=== PATIENT | male | born 1995 | race Caucasian/White ===

== ENCOUNTER 2018-12-13 13:52 | Outpatient (CLI) | payer OTHER ==
[2018-12-13] MEDS ORDERED: IOTHALAMATE MEGLUMINE 50 ML VIAL ONE (14:09)
[2018-12-13] MEDS ORDERED: BUFFERED LIDOCAINE 10 ML SYRINGE ONE (14:09)
[2018-12-13] MEDS ORDERED: GADOBUTROL 10 MMOL/10 ML VIAL ONE (14:10)
[2018-12-13] MEDS ORDERED: GADOBUTROL 10 MMOL/10 ML VIAL IVP ONE (14:51)
[2018-12-13] MEDS ORDERED: IOTHALAMATE MEGLUMINE 50 ML VIAL IVP ONE (14:51)
[2018-12-13] MEDS ORDERED: BUFFERED LIDOCAINE 10 ML SYRINGE IU ONE (14:51)
--- NOTE | 2018-12-13 17:01 | XRAY Report ---
Reason: RT SHOULDER, PAIN, RT SHOULDER INSTABILITY Procedure Date: 12/13/2018 Accession Number: [id number] / [id number] Procedure: FL - Arthrogram Needle Placement CPT Code: FULL RESULT: EXAM: RIGHT SHOULDER ARTHROGRAPHIC INJECTION WITH FLUOROSCOPIC GUIDANCE EXAM DATE: 12/13/2018 02:20 PM. CLINICAL HISTORY: RT SHOULDER PAIN and INSTABILITY. COMPARISON: None. TECHNIQUE: The risks, benefits, and alternatives of the procedure were discussed with the patient. All questions were answered. Written and verbal consent were obtained. The right glenohumeral joint was marked under fluoroscopy and prepped and draped in a sterile manner. Local anesthesia was performed with 1% lidocaine. A 22-gauge needle was then inserted into the glenohumeral joint. 10 mL of a solution containing 25% 1% lidocaine, 25% iodinated contrast, and a 1:200 dilution of gadolinium contrast in sterile saline was then injected. The needle was removed without immediate complication. Other: None. Fluoroscopy Time: 27 seconds. Number of Images: 5. FINDINGS: Bones and joints: No fracture or subluxation. Injection: Fluoroscopic images demonstrate needle placement and contrast in the glenohumeral joint. No contrast extravasation outside of the glenohumeral joint. IMPRESSION: Successful fluoroscopically guided arthrographic injection of the right shoulder. RADIA
--- NOTE | 2018-12-14 10:58 | MRI Report ---
Reason: RT SHOULDER, PAIN, RT SHOULDER INSTABILITY Procedure Date: 12/13/2018 Accession Number: [id number] / [id number] Procedure: MRI - Arthrogram Shoulder RT CPT Code: FULL RESULT: EXAM: RIGHT SHOULDER MRI ARTHROGRAM WITH CONTRAST EXAM DATE: 12/13/2018 03:17 PM. CLINICAL HISTORY: Right shoulder pain and instability. COMPARISON: None. TECHNIQUE: Multiplanar, multisequence T1-weighted and fluid-sensitive sequences of the shoulder after an arthrographic injection of dilute gadolinium, dictated under a separate exam. Other: None. FINDINGS: Acromioclavicular Region: The acromion is type II. The patient has had a distal clavicle resection. The coracoacromial and coracoclavicular ligaments are intact. There is no contrast or fluid in the subacromial/subdeltoid bursa. Glenohumeral Region: No subluxation. No loose bodies. The articular cartilage is unremarkable. The glenohumeral ligaments and joint capsule are unremarkable. Bone Marrow: No fracture, marrow edema or bone lesions. Labrum: A partial-thickness cleft is seen at the junction of the posterior labrum and the articular cartilage at posterior labrum at 8 o'clock position on series 501, image 8. The axial THRIVE sequence done at high-resolution also demonstrates some deeper contrast indicating that there is a full-thickness component to this that is poorly visualized (series 401, image 34). Biceps Tendon: The long head of the biceps tendon and biceps kishore are intact. Musculature/Rotator Cuff: The subscapularis, supraspinatus, infraspinatus, and teres minor tendons are intact. No edema or fatty atrophy. Other: The subcutaneous tissues are unremarkable. IMPRESSION: 1. Findings concerning for a full-thickness tear of the posterior inferior labrum 8 o'clock position. 2. Prior distal clavicle resection. RADIA
== END 2018-12-13 13:53 | disposition home or self-care (01) ==
LOC: DI 13:52
PROVIDERS: ATTEND Orthopaedic Surgery
DX: M25.511 Pain in right shoulder (principal); M25.311 Other instability, right shoulder
CPT/HCPCS: 23350; 73222; 77002; A9585; Q9961

== ENCOUNTER 2019-02-09 07:03 | Day surgery (SDC) | payer OTHER ==
[2019-02-09] MEDS ORDERED: fentaNYL 100 MCG/2 ML VIAL IVP ONE (07:04)
[2019-02-09] MEDS ORDERED: MIDAZOLAM 2 MG/2 ML VIAL IVP ONE (07:04)
[2019-02-09] MEDS ORDERED: PROPOFOL 200 MG/20 ML VIAL IVP ONE (07:04)
[2019-02-09] MEDS ORDERED: ROCURONIUM 50 MG/5 ML VIAL IVP ONE (07:04)
[2019-02-09] MEDS ORDERED: LIDOCAINE 2% 10 ML MDV SUBQ ONE (07:04)
[2019-02-09] MEDS ORDERED: cefTRIAXone 2 GM VIAL ONE (07:08)
[2019-02-09] MEDS ORDERED: CEFAZOLIN SODIUM IN 0.9 % NACL 0 GM/0 ML BAG IV ONE (07:36)
[2019-02-09] MEDS ORDERED: SCOPOLAMINE PATCH TOP ONE (07:39)
[2019-02-09] MEDS ORDERED: ACETAMINOPHEN 1,000 MG/100 ML 100 ML IV ONE (07:40)
[2019-02-09] MEDS ORDERED: GABAPENTIN 400 MG CAPSULE ONE (07:40)
[2019-02-09] MEDS ORDERED: CELECOXIB 100 MG CAPSULE PO ONE (07:40)
[2019-02-09] MEDS ORDERED: LACTATED RINGERS 1,000 ML IV ONE (08:05)
--- NOTE | 2019-02-09 08:26 | ANESTHESIA ---
Pre-Anesthesia VS, & Labs - Diagnosis right shoulder labral tear, possible RCtear - Procedure Right shoulder arthroscopic labral repair Vital Signs: Temp Pulse Resp BP Pulse Ox 36 C L 77 16 129/84 H 99 02/09/19 07:15 02/09/19 07:15 02/09/19 07:15 02/09/19 07:15 02/09/19 07:15 Height 5 ft 10.87 in Weight (kg) 77 kg - NPO >8 hours Home Medications and Allergies Home Medications: Ambulatory Orders No Known Home Medications 02/06/19 No Known Home Medications 02/06/19 Allergies/Adverse Reactions: Allergies Allergy/AdvReac Type Severity Reaction Status Date / Time Penicillins Allergy Unknown Verified 02/06/19 09:26 Anes History & Medical History - Anesthetic History Anesthesia Complications: reports: Post-Operative Nausea/Vomiting - Medical History Cardiovascular: reports: None Pulmonary: reports: None Gastrointestinal: reports: None Urinary: reports: None Neuro: reports: None Musculoskeletal: reports: None, Other Endocrine/Autoimmune: reports: None Blood Disorders: reports: None Skin: reports: None Smoking Status: Never smoker Psychosocial: reports: No issues indicated - Surgical History Orthopedic: Shoulder arthroplasty, Other Exam General: Alert, Oriented x3, Cooperative, No acute distress Dental: WNL Mouth Openin Fingerbreadth Neck Mobility: Normal Mallampati classification: I Thyromental Distance: greater than 6 cm Respiratory: Lungs clear, Normal breath sounds, No respiratory distress, No accessory muscle use Cardiovascular: Regular rate, Normal S1, Normal S2, No murmurs Mental/Cognitive Status: Alert/Oriented X3, Normal for patient Plan Anesthesia Type: General, Interscalene Block (right) Regional Block: Per Surgeon's request for Post Op pain control Consent for Procedure(s) Verified and Reviewed: Yes Code Status: Attempt Resuscitation ASA classification: 1-Healthy patient Is this case an emergency?: No
[2019-02-09] MEDS ORDERED: EPINEPHrine 1 MG/ML AMP ONE (08:47)
[2019-02-09] MEDS ORDERED: BUPIVACAINE 0.25% PF 30 ML VIAL ONE (08:47)
[2019-02-09] MEDS: LACTATED RINGERS 1,000 ML IV ONE (10:20)
[2019-02-09] MEDS ORDERED: ONDANSETRON 4 MG/2 ML VIAL IVP PRN (10:55)
[2019-02-09] MEDS ORDERED: oxyCODONE 5 MG TABLET PO PRN (10:55)
--- NOTE | 2019-02-09 11:07 | OPERATIVE REPORT ---
Operative Report - Other Other Information/Narrative: Date of Surgery: 09 February 2019 Pre-Op Diagnosis: Right shoulder posterior labral tear Procedure: Right shoulder arthroscopic posterior labral repair Postop Diagnosis: Same Primary Surgeon: Jose R Baca Secondary Surgeon: Murphy Tran Complications: None EBL: 25 cc IMPLANTS: Arthrex suture tack, knotless x3 POSTOPERATIVE PLAN: 0-2 weeks-Sling at all times. Pendulum exercises 5 times per day. 2-6 weeks-Passive range of motion with the following limits: FF to 120 with palm up only, ER unlimited, abduction to 90 6-12 weeks-Active range of motion in all planes without limitation. Isometric rotator cuff strengthening is allowed 12-16 weeks-Gradually increase strengthening 16 weeks and beyond-Introduce dynamic activities EXAMINATION UNDER ANESTHESIA: ROM: Full Anterior load and shift: Normal Posterior load and shift: Grade 2, with click. Slightly more than the contralateral side that was grade 1 Inferior sulcus: Mild ARTHROSCOPIC FINDINGS: Rotator interval: Normal Biceps tendon & SLAP: Normal Subscapularis: Normal Rotator Cuff: Normal HAGL: Normal, none seen Labrum: Posterior tear from 6:30-9:30. Repaired with 3 knotless suture tacks. A small capsular shift was performed and the labral tissue was excellent. 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 Since that injury 2-1/2 years ago his shoulder is felt painful and he does not trust it. MRI showed a posterior labral tear and physical examination confirmed those findings. Nonoperative managment failed to resolve symptoms. The risks, benefits, and alternatives were discussed. Risks included pain, bleeding, infection, damage to nearby structures, lack of symptom relief, implant complications, stiffness, need for further surgeries, DVT, PE, stroke, and even . He signed a written consent form. PROCEDURE IN DETAIL: The patient was met in the preoperative holding on the day of the procedure. Operative extremity was signed. Consent was verified. He desired to proceed. Regional anesthesia was obtained in the preoperative area. They were brought to the operating room and surrendered to anesthesia. Once general anesthesia was obtained they were placed in the lateral decubitus position with the operative side up. An axillary roll was placed and all bony prominences were well-padded. They were then prepped and draped in the standard sterile fashion. A surgical timeout was held to confirm the patient procedure, identity, procedure, laterality, allergies, images, and antibiotics. All were in agreement we proceeded. Balanced suspension was applied and a standard diagnostic arthroscopy was performed utilizing posterior and anterior superior portal sites. The anterior superior portal site was created under direct visualization. The findings of the diagnostic arthroscopy can be found above. A mid glenoid portal was then created under direct visualization bordering the subscapularis tendon. I then used a combination of high and low angled elevators to develop the labral tear and release it from off the glenoid neck. I then used to the pineapple rasp to finalize my release and abraded the bone to a bleeding bed. A sucker shaver was placed in the interval to debride any loose tissue and further abrade the glenoid neck. Any loose cartilage was debrided at that time. I then established a percutaneous 7:00 portal utilizing the Arthrex system. I then placed an anchor at the 7:00 position. The suture was passed using an appropriate 45 degree suture lasso. The labrum was secured using knotless technique. Appropriate tension was confirmed with a probe and the excess suture was cut. Using the same technique additional anchors were placed at 8:00, and 9:00 positions. Proper capsular tension was restored and a labral bumper was recreated. Balanced suspension was then released and final images were taken showing the humeral head centered in the glenoid. The portal sites were then closed with 3-0 Monocryl buried. Mastisol and Steri- Strips were applied. A sterile dressing and a sling was applied. He was awakened and transferred to the recovery room.
[2019-02-09] MEDS ORDERED: ONDANSETRON 4 MG/2 ML VIAL ONE (12:56)
[2019-02-09 13:23] VITALS: BP 147/78
== END 2019-02-09 07:04 | disposition home or self-care (01) ==
LOC: SDS 07:03
PROVIDERS: ATTEND Orthopaedic Surgery
PROC: 0RQJ4ZZ Repair Right Shoulder Joint, Percutaneous Endoscopic Approach (ICD-10-PCS; principal; 2019-02-09 08:15)
DX: S43.491A Other sprain of right shoulder joint, initial encounter (principal)

== ENCOUNTER 2019-04-27 21:27 | Emergency (ER) | payer OTHER ==
--- NOTE | 2019-04-27 21:45 | ED Physician Documentation ---
History of Present Illness - Stated complaint Stated Complaint: FAST HEART/SOA/TIRED - History obtained from History obtained from: Patient - History of Present Illness Timing: Prior to arrival Pain level max: 0 Pain level now: 0 Improved by: nothing Worsened by: exertion - Additonal information Additional information: sudden onset rapid palpitations shortly before arrival to ED. He has had many similar previous episodes but has yet to have an episode while being monitored (and thus he does not yet have a diagnosis). he says he has an upcoming referral with cardiology. Review of Systems Cardiac: reports: Palpitations. denies: Chest pain / pressure, Pedal edema, Calf pain Respiratory: reports: Reviewed and negative GI: reports: Reviewed and negative PD PAST MEDICAL HISTORY - Past Medical History Cardiovascular: None Respiratory: None Neuro: None Endocrine/Autoimmune: None GI: None : None HEENT: None Psych: None Musculoskeletal: None, Other Derm: None - Past Surgical History Ortho: Shoulder arthroplasty, Other - Present Medications Home Medications: Ambulatory Orders Medication Instructions Recorded Confirmed No Known Home Medications 02/06/19 02/06/19 - Allergies Allergies/Adverse Reactions: Allergies Allergy/AdvReac Type Severity Reaction Status Date / Time Penicillins Allergy Unknown Verified 02/06/19 09:26 - Social History Smoking Status: Never smoker PD ED PE NORMAL - Vitals Vital signs reviewed: Yes - General General: Alert and oriented X 3, No acute distress, Well developed/nourished - Neck Neck: Supple, no meningeal sign, Thyroid normal - Cardiac Cardiac: No murmur - Respiratory Respiratory: No respiratory distress, Clear bilaterally PD ED PE EXPANDED - Cardiac Cardiac: Tachy, Regular Rhythm Results - Vitals Vitals: Vital Signs - 24 hr 04/27/19 04/27/19 04/27/19 21:33 21:38 22:04 Temperature Heart Rate 221 H 113 H 110 H Respiratory 20 19 18 Rate Blood Pressure 143/86 H 105/71 O2 Saturation 100 99 04/27/19 04/27/19 22:39 22:58 Temperature 36.9 C Heart Rate 109 H 102 H Respiratory 17 15 Rate Blood Pressure 120/85 H 109/77 O2 Saturation 99 100 Oxygen O2 Source Room air Oxygen Flow Rate 2 - EKG (time done) No standard instances Rate: Rate (enter#) (119), Tachy Rhythm: Sinus tachycardia, LAE Raymond: Normal Intervals: Normal VT QRS: Normal Ischemia: Normal ST segments - Labs Labs: Laboratory Tests 04/27/19 04/27/19 04/27/19 21:30 21:30 21:30 WBC 8.5 RBC 5.72 Hgb 16.4 Hct 49.9 MCV 87.2 MCH 28.7 MCHC 32.9 RDW 11.9 L Plt Count 355 MPV 10.0 Neut # (Auto) 5.5 Lymph # (Auto) 2.0 Runnels # (Auto) 0.8 Eos # (Auto) 0.1 Baso # (Auto) 0.0 Absolute Nucleated RBC 0.00 Nucleated RBC % 0.0 Sodium 138 Potassium 3.2 L Chloride 101 Carbon Dioxide 25 Anion Gap 12.0 BUN 12 Creatinine 1.0 Estimated GFR (MDRD) 94 Glucose 85 Calcium 9.7 Magnesium 2.1 Total Bilirubin 0.7 AST 23 ALT 27 Alkaline Phosphatase 56 Total Protein 8.3 H Albumin 5.3 Globulin 3.0 Albumin/Globulin Ratio 1.8 Lipase 21 L TSH 1.10 PD MEDICAL DECISION MAKING - ED course Complexity details: reviewed results, re-evaluated patient, considered differential, d/w patient ED course: SVT on monitor on arrival, approximately 200 bpm narrow-complex and regular; converted to NSR with valsalva maneuver (modified; blew into syringe, then legs lifted up) Departure - Departure Disposition: 01 Home, Self Care Clinical Impression: SVT (supraventricular tachycardia) Condition: Good Instructions: ED Tachycardia Pat PSVT Follow-Up: MORENO CASEY [Primary Care Provider] - Discharge Date/Time: 04/27/19 23:02
[2019-04-27 21:59] LABS: BASOPHILS % (AUTO) 0.4 %; EOSINOPHILS # (AUTO) 0.1 10^3/uL (0.0-0.7); EOSINOPHILS % (AUTO) 0.9 %; HGB - HEMOGLOBIN 16.4 g/dL (14.0-18.0); LYMPHOCYTES % (AUTO) 24.1 %; MEAN CORPUSCULAR HEMOGLOBIN 28.7 pg (27.0-31.0); MEAN CORPUSCULAR HGB CONC 32.9 g/dL (32.0-36.0); MEAN CORPUSCULAR VOLUME 87.2 fL (80.0-94.0); MONOCYTES # (AUTO) 0.8 10^3/uL (0.0-1.0); NEUTROPHILS # (AUTO) 5.5 10^3/uL (1.5-6.6); NEUTROPHILS % (AUTO) 65.1 %; PLT - PLATELET COUNT 355 10^3/uL (130-450); RED BLOOD COUNT 5.72 10^6/uL (4.70-6.10); RED CELL DISTRIBUTION WIDTH 11.9 % (12.0-15.0); WHITE BLOOD COUNT 8.5 x10^3/uL (4.8-10.8)
[2019-04-27 22:10] LABS: ALBUMIN 5.3 g/dL (3.2-5.5); ALBUMIN/GLOBULIN RATIO 1.8 (1.0-2.2); BILIRUBIN,TOTAL 0.7 mg/dL (0.2-1.0); CALCIUM 9.7 mg/dL (8.5-10.3); MAGNESIUM 2.1 mg/dL (1.7-2.8); TOTAL PROTEIN 8.3 g/dL (6.7-8.2)
[2019-04-27] MEDS ORDERED: POTASSIUM CHLORIDE 20 MEQ TABLET PO STA (22:40)
[2019-04-27 22:59] VITALS: BP 109/77
== END 2019-04-27 23:02 | disposition home or self-care (01) ==
LOC: ED 21:27
DX: I47.1 Supraventricular tachycardia (principal)
CPT/HCPCS: 36415; 83690; 83735; 93005; 99283; 99284; A9270; 80053; 84443; 85025

== ENCOUNTER 2019-08-26 06:37 | Emergency (ER) | payer OTHER ==
--- NOTE | 2019-08-26 07:08 | ED Physician Documentation ---
PD HPI CHEST PAIN - Stated complaint Stated Complaint: SOA/FLUTTERING HEART - Chief complaint Chief Complaint: Cardiac - History obtained from History obtained from: Patient - History of Present Illness Timing - onset: How many days ago (2-3 days of intermittent palpitations, which makes him feel short of breath. Not persistent fast heart rate like prior SVTs. Has had this intermittently since ablation in June for SVT. Director Service had him wear monitor for 30 days. Just returned it several days ago.) Timing - onset during: Rest, Light activity. No: Exertion Timing - duration: Seconds Timing - details: Intermittant Quality: No: Pressure, Tightness Associated symptoms: Shortness of air, Palpitations. No: Nausea, Feeling faint / dizzy, General Weakness Similar symptoms before: Diagnosis (had episodes SVT with Ablation in June. Also with palpitations at times. Has noted them more the past 1-2 weeks, and then more the past few days. No change in diet. Did change work shift from days to nights. Denies caffeine, nicotine, alcohol.) Review of Systems Constitutional: denies: Fever, Chills Nose: denies: Rhinorrhea / runny nose, Congestion Throat: denies: Sore throat Cardiac: reports: Palpitations. denies: Chest pain / pressure, Pedal edema, Calf pain Respiratory: reports: Dyspnea. denies: Cough, Wheezing GI: denies: Nausea, Vomiting, Diarrhea Neurologic: denies: Near syncope Endocrine: denies: Weight loss, Weight gain PD PAST MEDICAL HISTORY - Past Medical History Past Medical History: Yes Cardiovascular: Other Respiratory: None Neuro: None Endocrine/Autoimmune: None GI: None : None HEENT: None Psych: None Musculoskeletal: None, Other Derm: None Other Past Medical History: SVT - Past Surgical History Past Surgical History: Yes Ortho: Shoulder arthroplasty, Other Cardiovascular: Other - Present Medications Home Medications: Ambulatory Orders Medication Instructions Recorded Confirmed Magnesium Oxide [Mag Ox] 400 mg PO DAILY #14 tablet 08/26/19 Potassium Gluconate 90 mg PO DAILY #30 tablet 08/26/19 - Allergies Allergies/Adverse Reactions: Allergies Allergy/AdvReac Type Severity Reaction Status Date / Time Penicillins Allergy Unknown Verified 08/26/19 06:57 - Social History Does the pt smoke?: No Smoking Status: Never smoker Does the pt drink ETOH?: Yes Does the pt have substance abuse?: No - Immunizations Immunizations are current?: Yes - POLST Patient has POLST: No PD ED PE NORMAL - Vitals Vital signs reviewed: Yes - General General: Alert and oriented X 3, No acute distress, Well developed/nourished - HEENT HEENT: Moist mucous membranes, Pharynx benign - Neck Neck: Supple, no meningeal sign, No adenopathy - Cardiac Cardiac: RRR, No murmur - Respiratory Respiratory: Clear bilaterally - Derm Derm: Normal color, Warm and dry, No rash - Extremities Extremities: No tenderness to palpate, Normal ROM s pain, No edema, No calf tenderness / cord - Neuro Neuro: Alert and oriented X 3, No motor deficit, Normal speech Results - Vitals Vitals: Vital Signs - 24 hr 08/26/19 08/26/19 06:40 08:10 Temperature 36.8 C Heart Rate 85 61 Respiratory 21 13 Rate Blood Pressure 149/80 H 120/74 O2 Saturation 98 99 Oxygen O2 Source Room air - EKG (time done) 06:48 Rate: Rate (enter#) (82) Rhythm: NSR Sparks: Normal Intervals: Normal PA QRS: Normal Ischemia: Normal ST segments, ST elevation c/w repol. No: ST elevation c/w ischemia, ST depression Compare to prior EKG: Unchanged from prior EKG (from April 2019) - Labs Labs: Laboratory Tests 08/26/19 08/26/19 08/26/19 06:48 06:48 06:48 Sodium 135 Potassium 3.3 L Chloride 100 L Carbon Dioxide 27 Anion Gap 8.0 BUN 23 H Creatinine 1.1 Estimated GFR (MDRD) 85 L Glucose 128 H Calcium 9.2 Magnesium 1.9 Total Bilirubin 0.7 AST 17 ALT 19 Alkaline Phosphatase 48 B-Natriuretic Peptide 6 Total Protein 7.2 Albumin 4.6 Globulin 2.6 Albumin/Globulin Ratio 1.8 Lipase 27 TSH 1.82 - Rads (name of study) chest xray Radiology: Prelim report reviewed (no acute process), See rad report PD MEDICAL DECISION MAKING - ED course Complexity details: considered differential (no ectopy here. Does have low potassium and low normal Mag. Can supplement these.), d/w patient Departure - Departure Disposition: 01 Home, Self Care Clinical Impression: Heart palpitations, Hypokalemia Condition: Stable Record reviewed to determine appropriate education?: Yes Instructions: ED Potassium Deficiency, ED Palpitations Follow-Up: MORENO CASEY [Primary Care Provider] - Prescriptions: Magnesium Oxide [Mag Ox] 400 mg PO DAILY #14 tablet Potassium Gluconate 90 mg PO DAILY #30 tablet Comments: Stay well-hydrated. Your potassium level was low and your magnesium level was in the low end of normal. I would supplement these 2 electrolytes that are green in the regulation of the heart rhythm as prescribed. 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 Discharge Date/Time: 08/26/19 08:22
[2019-08-26 07:44] LABS: ALBUMIN 4.6 g/dL (3.2-5.5); ALBUMIN/GLOBULIN RATIO 1.8 (1.0-2.2); BILIRUBIN,TOTAL 0.7 mg/dL (0.2-1.0); CALCIUM 9.2 mg/dL (8.5-10.3); CREATININE 1.1 mg/dL (0.6-1.2); MAGNESIUM 1.9 mg/dL (1.7-2.8); TOTAL PROTEIN 7.2 g/dL (6.7-8.2)
[2019-08-26] MEDS ORDERED: MAGNESIUM OXIDE 400 MG TABLET PO STA (07:58)
[2019-08-26] MEDS ORDERED: POTASSIUM CHLORIDE 20 MEQ TABLET PO STA (07:58)
[2019-08-26 08:10] VITALS: BP 120/74
--- NOTE | 2019-08-26 08:38 | XRAY Report ---
PROCEDURE: Chest 1 View X-Ray INDICATIONS: dyspnea/palpitations TECHNIQUE: One view of the chest was acquired. COMPARISON: None FINDINGS: Surgical changes and devices: None. Lungs and pleura: No pleural effusions or pneumothorax. Lungs are clear. Mediastinum: Mediastinal contours appear normal. Heart size is normal. Bones and chest wall: No suspicious bony lesions. Overlying soft tissues appear unremarkable. IMPRESSION: No evidence acute pulmonary process. Reviewed by: Royer Long MD on 08/26/2019 7:36 AM GLO Approved by: Royer Long MD on 08/26/2019 7:36 AM GLO Station ID: [id number]
== END 2019-08-26 08:22 | disposition home or self-care (01) ==
LOC: ED 06:37
DX: R00.2 Palpitations (principal); E87.6 Hypokalemia; Z86.79 Personal history of other diseases of the circulatory system
CPT/HCPCS: 36415; 71045; 80053; 83690; 83735; 83880; 84443; 93005; 99284; A9270